=== PATIENT | female | born 1985 | race Caucasian/White ===

== ENCOUNTER 2019-03-20 12:10 | Emergency (ER) | payer MEDICAID, OTHER ==
[~2019-03-20] VITALS: Ht 162.6 cm; Wt 112.0 kg
[2019-03-20 12:17] VITALS: BP 134/72
== END 2019-03-20 14:21 | disposition home or self-care (01) ==
LOC: ER 12:10
DX: S93.602A Unspecified sprain of left foot, initial encounter (principal); W22.8XXA Striking against or struck by other objects, initial encounter; Y93.39 Activity, other involving climbing, rappelling and jumping off; Y99.8 Other external cause status; Y92.89 Other specified places as the place of occurrence of the external cause
CPT/HCPCS: 73630